=== PATIENT | female | born 1980 | race Caucasian/White ===

== ENCOUNTER 2021-02-01 11:51 | Outpatient (REF) | payer OTHER, SELFPAY ==
--- NOTE | ~2021-02-01 | XR_ITS ---
EXAMINATION: XR SHOULDER, LEFT CLINICAL INFORMATION: Pain COMPARISON: None TECHNIQUE: AP external rotation, Grashey, scapular Y, and axillary views of the left shoulder. FINDINGS: The bones and soft tissues are normal. No fracture. Glenohumeral and acromioclavicular alignment is anatomic with normal joint space. No abnormal soft tissue calcifications. XR/XR shoulder LT min 2V IMPRESSION: Normal left shoulder.
== END 2021-02-01 11:52 | disposition home or self-care (01) ==
LOC: HO.XRAY 11:51
PROVIDERS: PCP Registered Nurse; Visit Provider Registered Nurse
DX: M25.512 Pain in left shoulder (principal)
CPT/HCPCS: 73030

== ENCOUNTER 2021-03-31 15:00 | Outpatient (RCR) | payer OTHER, SELFPAY | END 2021-03-31 16:52 | disposition home or self-care (01) | LOC: HO.PTCHIC 15:00 | PROVIDERS: PCP Registered Nurse; Visit Provider Registered Nurse | DX: M25.512 Pain in left shoulder (principal) | CPT/HCPCS: 97110; 97140; 97161 ==

== ENCOUNTER → 2021-08-17 15:33 | Outpatient (BNVA) | payer OTHER, SELFPAY | PROVIDERS: PCP Registered Nurse; Referring Provider Registered Nurse; Visit Provider Surgery | DX: K62.5 Hemorrhage of anus and rectum (principal); K59.00 Constipation, unspecified | CPT/HCPCS: 99202 ==

== ENCOUNTER 2021-10-06 08:11 | Day surgery (SDC) | payer OTHER, SELFPAY ==
[2021-09-28 18:22] VITALS: BMI 29.6
--- NOTE | 2021-10-05 08:53 | HO.ANESPROP2 ---
Documented by User: Sandee Luna NP 10/05/21 08:53 HPI - Anesthesia Eval Consult details Narrative: 41yo F for Colonoscopy with Poss Polypectomy PMFSH Active Problems Active Problems: All Active Problems (Updated 08/17/21 @ 16:08 by Reginaldo Carrizales MD) Constipation (Acute) Rectal bleeding (Acute) Past Medical History Medical History Constipation Rectal bleeding Family History Family History Paternal Grandfather Lung cancer Maternal Grandfather Skin cancer Surgical History Surgical History H/O: hysterectomy Hx of tubal ligation Social History Social History Alcohol intake: never Patient Tobacco Use Status: Never used Tobacco Use of substances other than those prescribed or required for medical reasons: No Are you DNR?: No Advance Directives: No Advance Directives Information Provided: No Advance Directives on File: No Recently lost weight without trying: No Nutrition Risks: No Nutritional Risk Patient : No Meds Allergies Allergy/AdvReac Type Severity Reaction Status Date / Time No Known Allergies Allergy Verified 10/06/21 08:32 Exam Exam Date and Time: October 05, 2021 0853 Height,Weight and Vital Signs: Height 5 ft 2 in Weight 73.482 kg Assessment and Plan Assessment Anesthesia Assessment: Chart Reviewed Documented by User: Mark Arriaza MD 10/06/21 08:52 PMFSH Past Medical History Medical History Constipation Rectal bleeding Patient : No Family History Family History Paternal Grandfather Lung cancer Maternal Grandfather Skin cancer Family history of problems with anesthesia: No Surgical History Surgical History H/O: hysterectomy Hx of tubal ligation History of Problems with Anesthesia: No Social History Social History Alcohol intake: never Patient Tobacco Use Status: Never used Tobacco Use of substances other than those prescribed or required for medical reasons: No Are you DNR?: No Advance Directives: No Advance Directives Information Provided: No Advance Directives on File: No Recently lost weight without trying: No Nutrition Risks: No Nutritional Risk Patient : No Meds Allergies Allergy/AdvReac Type Severity Reaction Status Date / Time No Known Allergies Allergy Verified 10/06/21 08:32 Exam Airway Mallampati Class: II TM Dist: >3cm Neck ROM: Full Loose/Missing/Broken Teeth: No Heart: ok Lungs: ok Assessment and Plan Final Anesthetic Review Family History of Problems with Anesthesia: No History of Problems with Anesthesia: No ASA Class: I Final Preanesthetic Review: No Changes in Pt Med Stat, Meds/Allgs Chart Reviewed, Consent Obtained/Reviewed and Anes Risks/Benef Reviewed Patient Risk: Low Procedure Risk: Low Anesthetic Plan Anesthetic Plan: MAC: and Agree w/ Assess. and Plan Disposition: Standard PACU
[2021-10-06 08:32] VITALS: BP 129/97; PULSE 72; RESP 18; TEMP 36.2; O2SAT 99
[2021-10-06] MEDS: Sodium Phosphate,Mono-Dibasic 133 ML ENEMA PR (08:52)
[2021-10-06] MEDS: Lactated Ringers 1,000 ML 100 ML IVCONT (08:52)
--- NOTE | 2021-10-06 08:55 | P.HPSUR_ITS ---
Pre-Procedural Eval Section A Date of Service: 10/06/21 Section B Chief Complaint: hemorrhage of anus and rectum Details of Present Illness: Has had periodic passage of bright blood per rectum, chronic constipation, also has hemorrhoids Relevant Family History (Specify if Yes): No Relevant Social History: None Present Medications: see Short Stay Collaborative assessment Medical History: No relevant PMH History of Previous Operations: No relevant previous surgery Allergies: Allergies Allergy/AdvReac Type Severity Reaction Status Date / Time No Known Allergies Allergy Verified 10/06/21 08:32 Review of Systems Sugical H&P ROS: Negative: Constitution, Cardiovascular, Respiratory, Neurological, Psychiatric, Hem-Onc, Allergic/Immunologic, Genitourinary, Musculoskeletal, Integumentary, Endocrine and Eyes/Ears/Nose/Throat and Yes, S pecify: Gastrointestinal (Constipation) Exam Surgical H&P Exam: Normal: HEENT, Normal: Heart, Normal: Lungs, Normal: Extremities, Normal: Abdomen, Normal: Skin and Normal: Neurological Plan Diagnosis/Plan: Unchanged I have reviewed the history and physical and performed a pertinent physical examination on my patient. No changes have occurred unless specified.
--- NOTE | 2021-10-06 09:45 | W.PM.OPN ---
Operative Note Operative Note Date of Service: 10/06/21 Narrative: Preop diagnosis: Rectal bleeding Postop diagnosis: Internal and external hemorrhoids otherwise normal colonoscopy findings Procedure: Colonoscopy Surgeon: Reginaldo Carrizales MD The patient is a 41-year-old female who had been seeing amounts of bright blood per rectum periodically. Examination office reveal hemorrhoids which appeared to be was of her bleeding. However, she was very anxious about this and wanted to proceed with colonoscopy. I explained to her the technique of the procedure as well as the risks, benefits, and alternatives She was brought to the operating room and placed in left lateral decubitus position under monitored anesthesia care. A full digital rectal exam was done. She did have external hemorrhoids. The tip of the Olympus colonoscope was gently introduced through the anal orifice and advanced with insufflation all the way to the cecum. The cecum was intubated. The cecum was identified by visualization of the ileocecal valve as well as the appendiceal orifice. The cecal mucosa was unremarkable. The scope was gradually withdrawn with careful examination of the entire colonic mucosa being done with scope withdrawal. The patient had good bowel prep so it was unlikely that any lesion may have been missed. The rectum was reached and there were no lesions seen. There was internal hemorrhoids anal canal which appeared to be moderately-sized. There was note of external hemorrhoids as well on both the left and right side. The scope was then withdrawn completely with desufflation The patient tolerated procedure well. There were no complications. The patient was transferred to the recovery room with stable vital signs.
[2021-10-06 09:50] VITALS: BP 113/83; PULSE 77; RESP 18; TEMP 36.1; O2SAT 97
[2021-10-06 10:05] VITALS: BP 133/85; PULSE 78; RESP 18; TEMP 36.1; O2SAT 100
== END 2021-10-06 10:45 | disposition home or self-care (01) ==
PROVIDERS: Visit Provider Surgery
PROC: 0DBE8ZZ Excision of Large Intestine, Via Natural or Artificial Opening Endoscopic (ICD-10-PCS; CPT 45378; principal; 2021-10-06 09:00)
DX: K62.5 Hemorrhage of anus and rectum (principal); K64.8 Other hemorrhoids; K64.4 Residual hemorrhoidal skin tags; K59.00 Constipation, unspecified
CPT/HCPCS: 45378; J2250

== ENCOUNTER → 2021-10-18 11:54 | Outpatient (BNVA) | payer OTHER, SELFPAY | PROVIDERS: Visit Provider Surgery ==

== ENCOUNTER 2023-07-02 09:32 | Outpatient (REF) | payer OTHER, SELFPAY ==
--- NOTE | ~2023-07-02 | XR_ITS ---
EXAMINATION: XR HIP, RIGHT WITH AP PELVIS CLINICAL INFORMATION: Pain COMPARISON: None available. TECHNIQUE: AP and frog-leg lateral views of the right hip are submitted, together with an AP view of the pelvis. FINDINGS: No fracture or dislocation. Alignment is anatomic. The bilateral acetabular joint spaces are well-maintained. The femoral heads are smooth. The sacroiliac joints are symmetric and well-maintained. The pubic symphysis is intact. The soft tissue tissues are unremarkable. XR/XR hip RT w PEL1V IMPRESSION: Normal right hip and AP pelvis radiographs.
--- NOTE | ~2023-07-02 | XR_ITS ---
EXAMINATION: XR SHOULDER, LEFT CLINICAL INFORMATION: Pain. COMPARISON: Radiographs dated 02/01/2021. TECHNIQUE: AP external rotation, Grashey, scapular Y, and axillary views of the left shoulder. FINDINGS: The bones and soft tissues are normal. No fracture. Glenohumeral and acromioclavicular alignment is anatomic with normal joint space. No abnormal soft tissue calcifications. XR/XR shoulder LT min 2V IMPRESSION: Normal left shoulder.
[2023-07-02 12:32] LABS: Erythrocyte Sedimentation Rate 16 MM/HR (0-20)
[2023-07-03 04:06] LABS: HBS Num1 0.01 mIU/mL (0-7.99); HBc Num1 0.13 S/CO (0.00-0.79); HBsAGNum1 0.49 S/CO (0.00-0.99); Hepatitis B Core Antibody Nonreactive (Nonreactive); Hepatitis B Surface Antigen Negative (Negative); ~HepC Num1 0.19 S/CO (0.00-0.79); ~Hepatitis A Antibody IgM Nonreactive (Nonreactive); ~Hepatitis B Surface Antibody NONREACTIVE (Nonreactive); ~Hepatitis C Antibody Nonreactive (Nonreactive)
[2023-07-03 14:34] LABS: Cyclic Citrullinated Peptide <16 UNITS
== END 2023-07-02 09:33 | disposition home or self-care (01) ==
LOC: HO.LAB 09:32
PROVIDERS: PCP General Practice; Referring Provider General Practice; Visit Provider Internal Medicine Rheumatology
DX: M25.512 Pain in left shoulder (principal); R76.8 Other specified abnormal immunological findings in serum; M25.551 Pain in right hip
CPT/HCPCS: 36415; 73030; 73502; 85652; 86140; 86200; 86704; 86706; 86709; 86803; 87340

== ENCOUNTER 2023-07-02 09:32 | Outpatient (AMB) | payer OTHER, SELFPAY ==
--- NOTE | 2023-07-02 09:36 | A.OFFVIS_ITS ---
Intake Vital Signs 07/02/23 09:37 Height 5 ft 2 in Weight 181 lb 14.102 oz BMI 33.3 BP 114/88 Blood Pressure Location Lt brachial Position Sitting Pulse 88 Pulse Source Pulse Oximeter Temp 97 F Temp Source Skin Pulse Oximetry (%) 98 Oxygen Delivery Method Room Air Intake Visit Reasons: + RF? 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 Areas of pain include the left shoulder, right shoulder, lower back and to less extent than the hands and knees. She complains of a tremor in the left hand. This is a non-intention tremor. It has not been evaluated yet. The left shoulder has been hurting for a couple of years. They did some workup on that including x-ray that was normal and then they did an MRI of the neck. This resulted in the finding of a cyst in the neck that was operated on. The MRI of the neck did show multiple levels of degenerative disc disease. [facility] Medical History (Updated 07/02/23 @ 10:42 by Chris Terry MD) Constipation Rectal bleeding Surgical History (Updated 07/02/23 @ 09:43 by SUKHJINDER Wagoner) H/O total cystectomy H/O: hysterectomy History of colonoscopy Hx of tubal ligation Family History (Updated 07/02/23 @ 09:44 by SUKHJINDER Wagoner) Paternal Grandfather Lung cancer Maternal Grandfather Skin cancer Arthritis Paternal Aunt Lupus Social History (Updated 07/02/23 @ 09:45 by SUKHJINDER Wagoner) Household Members: Spouse and Children Alcohol intake: former Patient Tobacco Use Status: Former Tobacco user Current occupational status: employed Current occupation: Teacher, behavior therapist Review of Systems Const Details: Some fatigue. Negative for appetite change, weight change, fever, chills, malaise Eyes Details: Negative for vision change, dry eyes,headaches and dizziness ENT Details: Negative for hearing change, tinnitus, oral ulcer, nose bleeds and oral dryness. Card Details: Negative chest pain, edema and syncope Resp Details: Negative for SOB, cough and wheezing GI Details: Occasional constipation. Negative indigestion/heartburn, nausea, abdominal pain, bowel changes, diarrhea, and bloody stool. Details: Negative for dysuria, hematuria, nocturia, decreased force/flow and genital discharge Skin/Breast Details: Negative for itching, rash, hives, Raynaud's symptoms, sun sensitivity, and skin cancer Neuro Details: Left hand has movements when she is not intentionally using it. There is occasional tingling in the left hand as well. This seems to be accompanied by shoulder pain. Negative for epilepsy, palsy, stroke, changes in speech, and weakness Psych Details: Negative for anxiety, depression and stress Endo Details: Negative for polyuria and polydypsia Heriberto/Lymph Details: Negative for excessive bruising or bleeding. Physical Exam Vital Signs: Last Vital Signs Temp 97 F 07/02/23 09:37 Pulse 88 07/02/23 09:37 BP 114/88 07/02/23 09:37 Pulse Ox 98 07/02/23 09:37 Oxygen Delivery Method Room Air 07/02/23 09:37 BMI result Body Mass Index 33.3 APPEARANCE: Patient in no acute distress EYES no redness, pupils equal and reactive to light, eyelids normal EARS: External ear normal, canal clear and tympanic membrane normal. NOSE/SINUS: Airflow through both nares, no nasal discharge, no bleeding THROAT: Oral mucosa moist, no ulcerations NECK: There is a well-healed scar anteriorly. No thyromegaly or masses, no adenopathy, trachea midline. HEART: Regulrar rhythm, S1-S2 heard, no murmurs, rubs or gallops. LUNG: Clear to percussion and auscultation ABD: Normal bowel sounds, no organomegaly, masses or tenderness. EXTREMITIES: No edema, no calf tenderness, normal peripheral pulses. NEURO: Oriented and alert x3. No focal weakness. Reflexes symmetric. Gait normal. I do not really detect any movements in the left hand. SKIN: No inflammatory or neoplastic lesions. Normal color and turgor JOINT EXAM:.?? Cervical Spine:.? Mild pain with extremes of normal range of motion; no tenderness. Thoracic Spine:.? No scoliosis.? No tenderness on palpation. Lumbar Spine:.? Alignment normal.? Full range of motion without pain, no tenderness. Chest Wall:.? No tenderness, swelling, increased warmth or erythema. Hands:. Left: Slight tenderness at the 1st MCP but no other areas of tenderness or swelling. Normal range of motion. Right:? Normal pain-free range of motion without tenderness, swelling, increased warmth or erythema. Able to make a full fist and has a good bellman driver strength. Wrists:.? Right: Slight pain with extremes of normal range of motion with some slight tenderness but no swelling. Left: Normal pain-free range of motion without tenderness, swelling, increased warmth or erythema. Elbows:. Right: Slight medial epicondylar tenderness. Elsewhere there is no tenderness or swelling with pain-free range of motion. Left: Normal pain-free range of motion without tenderness, swelling, increased warmth or erythema. Shoulders: Right: Slight pain with extremes of normal range of motion. Minima anterior tenderness without weakness or swelling. No adenopathy. Left: Mild pain wit abduction at 135 degrees or with extremes of rotation. Mild anterior tenderness without abductor weakness, swelling or adenopathy. Hips:.? Right: Slight lateral pain with extremes of rotation. No groin pain with motion. Left: Full range of motion without pain. Hip bursa:.? Moderate right trochanteric tenderness. Knees:.?? Normal pain-free range of motion without tenderness, swelling, increased warmth or erythema.? There is no effusion or crepitation Ankles:.? Normal pain-free range of motion without tenderness, swelling, increased warmth or erythema. Feet:.? Normal pain-free range of motion without tenderness, swelling, increased warmth or erythema. Tender points:.? Slighttenderness to digital palpation at the trapezius, lateral epicondyle, greater trochanter the area bilaterally. ? Results Reviewed Results Reviewed: September 2022: Rheumatoid factor 78. TSH normal, hemoglobin normal, VENUS negative Assessment & Plan Assessment & Plan (1) Hip pain, right: Code(s): M25.551 - Pain in right hip (2) Rheumatoid factor positive: Code(s): R76.8 - Other specified abnormal immunological findings in serum (3) Shoulder pain, left: Code(s): M25.512 - Pain in left shoulder Plan She has a moderately positive rheumatoid factor but no obvious signs of an active inflammatory arthritis. Of course over time symptoms could evolve further. The right hip pain seems to be consistent with some trochanteric bursitis. The left shoulder has painful range of motion consistent with rotator cuff pathology. I am going to recheck the left shoulder film. If that does not show significant pathology the next step in workup would be an MRI of the shoulder. She has already tried physical therapy for the shoulder and received a corticosteroid injection without improvement. To workup further the rheumatoid factor we will check some hepatitis profile. We will get back to her with the results of her workup. Orders: Orders Cyclic Citrullinated Peptide Today R76.8 - Other specified abnormal immunological findings in serum C Reactive Protein Today R76.8 - Other specified abnormal immunological findings in serum Erythrocyte Sedimentation Rate Today R76.8 - Other specified abnormal immunological findings in serum Hepatitis A,B,C Profile Today R76.8 - Other specified abnormal immunological findings in serum XR shoulder LT min 2V Today M25.512 - Pain in left shoulder Coding Level of Care Code New Pt Level 3 (51480) Diagnoses Hip pain, right M25.551 Rheumatoid factor positive R76.8 Shoulder pain, left M25.512
[2023-07-02 09:37] VITALS: BP 114/88; PULSE 88; TEMP 36.1; O2SAT 98; BMI 33.3
== END 2023-07-02 10:47 | disposition home or self-care (01) ==
PROVIDERS: PCP General Practice; Referring Provider General Practice; Visit Provider Internal Medicine Rheumatology
DX: M25.551 Pain in right hip (principal); R76.8 Other specified abnormal immunological findings in serum; M25.512 Pain in left shoulder; M25.511 Pain in right shoulder
CPT/HCPCS: 99203

== ENCOUNTER 2023-07-26 16:06 | Outpatient (REF) | payer OTHER, SELFPAY ==
[2023-07-26 17:39] LABS: Appearance Urine Cloudy; Color Urine Yellow; Glucose Urine UA Negative (Negative); Leukocyte Esterase Urine Negative (Negative); Nitrite Urine Negative (Negative); Specific Gravity - Urine >= 1.030 (1.005-1.025); Urine Blood Negative (Negative); Urine Ketones Negative (Negative); Urine Protein Negative (Neg-Trace)
[2023-07-26 18:01] LABS: Bacteria Urine 3+ (None Seen); Hyaline Casts Urine 0-2 /LPF (0-2); RBC Urine 0-2 /HPF (0-2); WBC Urine 0-5 /HPF (0-5)
== END 2023-07-26 16:07 | disposition home or self-care (01) ==
LOC: HO.HHCL 16:06
PROVIDERS: Visit Provider General Practice
DX: R30.0 Dysuria (principal)
CPT/HCPCS: 81001

== ENCOUNTER 2023-07-29 13:32 | Outpatient (REF) | payer OTHER, SELFPAY ==
--- NOTE | ~2023-07-29 | MR_ITS ---
EXAMINATION: MR SHOULDER WITHOUT CONTRAST, LEFT CLINICAL INFORMATION: Pain in the left shoulder. COMPARISON: X-rays of the left elbow June 2023. TECHNIQUE: MRI of the left shoulder was performed without contrast on a high field MRI scanner. FINDINGS: Rotator Cuff: Infraspinatus: There is a minimal linear focus of intermediate increased signal at the insertion of the infraspinatus tendon compatible with focal tendinosis or minimal interstitial partial tearing. No measurable defect or tendon retraction. Muscle normal. Remaining rotator cuff muscles and tendons normal. Biceps: Normal. Coracoacromial Arch: The acromioclavicular joint is normal. The undersurface of the acromion is flat without subacromial spur. Bursa: Trace fluid/edema within the bursa compatible with normal variation or minimal bursitis. Labrum/Capsule: Normal. Glenohumeral Joint: Normal. MR/MR shoulder LT wo con IMPRESSION: 1. Minimal abnormality of the infraspinatus tendon compatible with focal tendinosis or minimal interstitial partial tearing. 2. Trace fluid within the subacromial subdeltoid bursa compatible with normal variation or minimal bursitis.
== END 2023-07-29 13:33 | disposition home or self-care (01) ==
LOC: HO.MRI 13:32
PROVIDERS: PCP General Practice; Visit Provider Internal Medicine Rheumatology
DX: M25.512 Pain in left shoulder (principal); M75.82 Other shoulder lesions, left shoulder
CPT/HCPCS: 73221

== ENCOUNTER 2023-08-29 14:58 | Outpatient (AMB) | payer OTHER, SELFPAY ==
--- NOTE | 2023-08-29 15:12 | A.OFFVIS_ITS ---
Intake Vital Signs 08/29/23 15:17 Height 5 ft 2 in Weight 181 lb BMI 33.1 Intake Visit Reasons: New Pt - right hip pain Intake Note: Edwige 43 yr old female presents today for a new patient visit with complaints of progressively worsening neck pain which radiates down her left arm as well as intermittent left shoulder pain and right hip pain. She describes her neck pain as sharp and severe in nature. Her neck pain has gotten worse over the last 3 years in spite of continued non operative treatments. She has done physical therapy for 12 weeks over the last 6 months which aggravated her pain. The patient has tried Tylenol and anti-inflammatory medicines which gave her minimal relief. She describes her left shoulder pain and right hip pains as aching in nature. She has had cortisone injections in the past which gave her only temporary relief. Patient states that at times her left arm will go ?completely numb?. Allergies No Known Allergies Allergy (Verified 08/29/23 15:15) Medication List - Last Reconciled 08/29/23 by Chris Camacho MD lisinopril 10 mg PO DAILY methylprednisolone (Medrol (Vin)) PO PER [facility] Medical History (Updated 08/29/23 @ 15:38 by Chris Camacho MD) Constipation Rectal bleeding Surgical History (Updated 07/02/23 @ 09:43 by SUKHJINDER Wagoner) H/O total cystectomy History of colonoscopy H/O: hysterectomy Hx of tubal ligation Family History (Updated 07/02/23 @ 09:44 by SUKHJINDER Wagoner) Paternal Grandfather Lung cancer Maternal Grandfather Skin cancer Arthritis Paternal Aunt Lupus Social History (Updated 08/29/23 @ 15:16 by Tamara Cartwright [facility]) Household Members: Spouse and Children Alcohol intake: former Patient Tobacco Use Status: Former Tobacco user Current occupational status: employed Current occupation: Teacher, behavior therapist/ rt hand Physical Exam Vital Signs: BMI result Body Mass Index 33.1 Const Other: Well-nourished well-developed very friendly female awake alert and oriented x3 in no acute distress Neck Other: Cervical spine examination shows pain with range of motion, left-sided paraspinal muscle tenderness, positive Spurling's test Extrem Other: Bilateral upper extremity examination shows good capillary refill, no skin lesions noted, normal sensation light touch Left shoulder examination shows almost full range of motion when compared to her right shoulder, 5/5 strength with supraspinatus testing, positive impingement signs, tenderness over her acromioclavicular joint Right hip examination shows slightly decreased range of motion when compared to her left hip, minimal discomfort with range of motion, tenderness over her bursa, no overlying skin lesions Results Reviewed Results Reviewed: X-rays of the patient's right hip show minimal joint space narrowing, no acute bony abnormalities MRI of the patient's left shoulder shows moderate to severe acromioclavicular joint narrowing, a type 2 acromion, no acute bony abnormalities Assessment & Plan Assessment & Plan (1) Neck pain: Code(s): M54.2 - Cervicalgia Plan: Ms. Fields presents with progressively worsening neck pain radiates into her left arm possibly due to cervical stenosis or a disc herniation. Thus, I will send her for an MRI of her cervical spine for further evaluation. She will contact me prior to the MRI should her symptoms worsen in any way. Patient also has left shoulder pain due to impingement syndrome and right hip pain due to greater trochanteric bursitis. We will hold off on a cortisone injection as per the patient's request. I did give her a prescription for a Medrol Dosepak to help with her symptoms in the meantime. Feel free to call me at any time should questions regarding her orthopedic management arise. Thank you very much for asking me to see this very friendly patient. I spent 24 minutes in reviewing the patient's records and imaging studies, seeing the patient and documenting in the medical record. Orders: Orders XR hip RT min 2V 08/29/23 M25.551 - Pain in right hip MR cervical spine wo con 08/29/23 M54.2 - Cervicalgia Medications: New methylprednisolone (Medrol (Vin)) PO PER PKG DIR 21 ea 0RF Coding Level of Care Code New Pt Level 2 (32308) Diagnoses Neck pain M54.2
[2023-08-29 15:17] VITALS: BMI 33.1
== END 2023-08-29 15:51 | disposition home or self-care (01) ==
PROVIDERS: PCP General Practice; Visit Provider Orthopaedic Surgery
DX: M54.2 Cervicalgia (principal)
CPT/HCPCS: 99202

== ENCOUNTER 2023-08-29 16:27 | Outpatient (REF) | payer OTHER, SELFPAY ==
--- NOTE | ~2023-08-29 | XR_ITS ---
EXAMINATION: XR HIP, RIGHT CLINICAL INFORMATION: Pain. COMPARISON: Radiographs dated 07/02/2023. TECHNIQUE: An AP view of the pelvis and a frog lateral view of the right hip were submitted. FINDINGS: Bony alignment and mineralization are normal. The acetabular joint spaces are well-maintained. There is slight irregularity of the acetabular roofs. The femoral heads are smooth. No fracture or dislocation is seen. The sacroiliac joints are symmetric and well-maintained. The pubic symphysis is intact. No foreign body is noted. XR/XR hip RT min 2V IMPRESSION: There are minimal osteoarthritic changes of the hips. No acute fracture or dislocation is seen.
== END 2023-08-29 16:28 | disposition home or self-care (01) ==
LOC: HO.HOSX 16:27
PROVIDERS: Visit Provider Orthopaedic Surgery
DX: M25.551 Pain in right hip (principal); M54.2 Cervicalgia; Z79.899 Other long term (current) drug therapy
CPT/HCPCS: 73502

== ENCOUNTER 2023-10-31 15:09 | Outpatient (AMB) | payer SELFPAY ==
--- NOTE | 2023-10-31 15:13 | MHC.OFFVIS ---
Intake Vital Signs 10/31/23 15:14 Height 5 ft 2 in Weight 181 lb BMI 33.1 Intake Visit Reasons: OV - Left Shoulder Pain Intake Note: Amna is a 43 year old female who presents today for a follow up of her left shoulder. She states that she got minimal relief from the Medrol Dosepak. She did have a cortisone injection given into her left shoulder in the past which gave her only mild relief. She denies any weakness. Allergies No Known Allergies Allergy (Verified 08/29/23 15:15) Medication List - Last Reconciled 11/01/23 by Chris Camacho MD lisinopril 10 mg PO DAILY methylprednisolone (Medrol (Vin)) PO PER PK DIR [facility] Medical History Constipation Rectal bleeding Surgical History H/O total cystectomy History of colonoscopy H/O: hysterectomy Hx of tubal ligation Family History Paternal Grandfather Lung cancer Maternal Grandfather Skin cancer Arthritis Paternal Aunt Lupus Social History Household Members: Spouse and Children Alcohol intake: former Patient Tobacco Use Status: Former Tobacco user Current occupational status: employed Current occupation: Teacher, behavior therapist/ rt hand Physical Exam Vital Signs: BMI result Body Mass Index 33.1 Const Other: Well-nourished well-developed very friendly female awake alert and oriented x3 in no acute distress Extrem Other: Insert bilateral upper Left shoulder examination shows almost full range of motion when compared to her right shoulder, 5/5 strength with supraspinatus testing, positive impingement signs, tenderness over her acromioclavicular joint Office Procedures Joint Injection/Drain Joint Injection/Drain Primary Site: left shoulder Prep: site was prepped using aseptic technique Injected: 40 mg of, DepoMedrol and 1% plain lidocaine Procedure: The patient tolerated the procedure well Coding 32980 - Large joint Procedure code (CPT) selection complete Results Reviewed Results Reviewed: MRI of the patient's left shoulder shows moderate to severe acromioclavicular joint narrowing, a type 2 acromion, signal change within the supraspinatus tendon most likely due to rotator cuff tendinosis Assessment & Plan Assessment & Plan (1) Impingement syndrome of left shoulder: Code(s): M75.42 - Impingement syndrome of left shoulder Plan Ms. Fields presents with left shoulder pain due to impingement syndrome and rotator cuff tendinosis. I had a lengthy discussion with the patient regarding the treatment options. She wishes to hold off on surgery for as long as possible. I agree with this plan. The risks and benefits of a left shoulder cortisone injection were discussed at length with the patient. The patient wished to proceed. She tolerated the injection well. She will continue with her home stretching program. She will follow up with me on an as-needed basis should her symptoms not plateau at an unacceptable level over the next few months. Feel free to call me at any time should questions regarding her orthopedic management arise. I spent 22 minutes in reviewing the patient's records and imaging studies, seeing the patient and documenting in the medical record. Orders: Orders AMB Joint Injection/Aspiration 10/31/23 M75.42 - Impingement syndrome of left shoulder Coding Level of Care Code Est Pt Level 2 (16867) Diagnoses Impingement syndrome of left shoulder M75.42 CPT Codes Coding - 37500 Large joint: 56655 - Large joint ([id number])
[2023-10-31 15:14] VITALS: BMI 33.1
== END 2023-10-31 15:35 | disposition home or self-care (01) ==
PROVIDERS: PCP General Practice; Visit Provider Orthopaedic Surgery
DX: M75.42 Impingement syndrome of left shoulder (principal)
CPT/HCPCS: 20610; 99213

== ENCOUNTER → 2023-10-31 15:09 | Outpatient (BNVA) | payer SELFPAY | PROVIDERS: PCP General Practice; Visit Provider Orthopaedic Surgery | DX: M75.42 Impingement syndrome of left shoulder (principal) | CPT/HCPCS: 20610; J1020 ==

== ENCOUNTER → 2024-09-10 14:09 | Outpatient (REF) | payer OTHER, SELFPAY | LOC: HO.SL 14:09 | PROVIDERS: PCP General Practice; Visit Provider General Practice | DX: R40.0 Somnolence (principal); R06.83 Snoring; R42 Dizziness and giddiness | CPT/HCPCS: 95806 ==

== ENCOUNTER → 2024-09-10 19:00 | Outpatient (BNV) | payer OTHER, SELFPAY | PROVIDERS: PCP General Practice; Visit Provider Internal Medicine | DX: R06.83 Snoring (principal); R40.0 Somnolence | CPT/HCPCS: 95806 ==

== ENCOUNTER 2024-09-11 15:30 | Outpatient (REF) | payer OTHER, SELFPAY ==
--- NOTE | ~2024-09-11 | CT_ITS ---
EXAMINATION: CT HEAD WITHOUT CONTRAST CLINICAL INFORMATION: Vertigo. COMPARISON: None available. TECHNIQUE: Contiguous axial imaging was performed from the skull base to vertex without intravenous administration of contrast. This CT examination was performed using dose optimization techniques as appropriate, variously including the following: *Automated exposure control. *Adjustment of mA and/or kV according to patient size (this includes techniques or standardized protocols for targeted exams where dose is matched to indication/reason for exam; i.e. extremities or head). *Use of iterative reconstruction technique. DLP: 800 mGy-cm FINDINGS: There is no evidence of acute intracranial hemorrhage or edematous territorial infarction. Pink-white matter differentiation is preserved. There is no abnormal attenuation within the brain parenchyma. The ventricles are normal in morphology and size. No evidence for obstructive hydrocephalus. No abnormal mass effect or midline shift. No extra-axial fluid collections. No acute soft tissue or osseous abnormalities. Mild mucosal thickening of the paranasal sinuses. The mastoid air cells and middle ear cavities are clear. Mild degenerative arthropathy of the left temporomandibular joint. CT/CT head/brain wo IV con IMPRESSION: No evidence of acute intracranial hemorrhage or edematous territorial infarction. Electronically signed by: David Nazario DO 10/28/2024 05:35 AM EST
== END 2024-09-11 15:31 | disposition home or self-care (01) ==
LOC: HO.CT 15:30
PROVIDERS: PCP General Practice; Visit Provider General Practice
DX: R42 Dizziness and giddiness (principal)
CPT/HCPCS: 70450

== ENCOUNTER 2025-03-09 14:15 | Outpatient (REF) | payer OTHER, SELFPAY ==
--- OUTSIDE RECORDS SUMMARY | 2025-03-09 17:07 | XMS_ITS | Encounter Summary ---
Author Organization [employer] Address [address] [place] [address] Care Team Providers Care Supervisor Insecticide Name Role Phone Anne Clemente MD Primary Care Provider [phone] Reason for Visit * Reason Onset Date Comments Med Refill 11/22/2023 Encounter Details Date Type Department Care Team ([facility] st Contact Info) Description 11/22/[address] [facility] MEDICINE [address] [place] [address] Anne Clemente MD [address], [place] [id number] Med Refill Social History Tobacco Use Types Packs/Day Years Used Date Smoking Tobacco: Never Smokeless Tobacco: Never Alcohol Use Standard Drinks/Week Comments Never 0 (1 standard drink = 0.6 oz pur e alcohol) Housing Stability Answer Date Recorded What is your housing situation today? I have ceciliakamran zapata 09/16/[address] you li ve. Do you have problems with any of the following? None of the above 09/16/2023 Food Insecurity Answer Date Recorded Within the past 12 months, y ou worried that your food would run out before you got money to buy more: Never True 09/16/2023 Within the past 12 months,th e food you bought just didn't last and you didn't have enough money to get more: Never True Transportation Answer Date Recorded In the past 12 months, has l ack of transportation kept you from medical appts, meetings, work or from getting things needed for daily living? Yes, it has kept me from medical appointments or getting medications. 08/25/2023 Utilities Answer Date Recorded In the past 12 months, has t he electric, gas, oil or water company threatened to shut off services in your home? No 09/16/2023 Depression Answer Date Recorded Patient Health Questionnaire-2 Score 2 06/07/2023 Comments Unknown Sex and Gender Information Value Date Recorded Sex Assigned at Female 09/17/2022 10:37 AM EDT Legal Sex Female 10:37 AM EDT Gender Identity Female 09/17/2022 10:37 AM EDT Sexual Orientation Choose not to disclose 2021 10:37 AM EDT documented as of this encounter Miscellaneous Notes * Telephone Encounter - Amna Gautam LPN - 11/22/2023 9:32 AM EST Medication was sent to [facility] #[id number] on 07/26/23 #90 with 3 refills. * Telephone Encounter - Kev Galvan - 11/22/2023 9:29 AM EST TC from pt requesting medication refill. Medications needing refill : lisinopril 10 MG tablet To be sent to: [facility]/pharmacy #[id number] - [place] [place] [facility] documented in this encounter Plan of Treatment Not on file documented as of this encounter Visit Diagnoses Not on filedocumented in this encounter Care Teams Supervisor Insecticide Relationship Specialty Start Date End Date Anne Clemente MD [address] [place] [address] PCP - General Family Medicine 07/10/21 documented as of this encounter
--- OUTSIDE RECORDS SUMMARY | 2025-03-09 17:07 | XMS_ITS | Clinical Summary ---
Author Organization [employer] Address [address] [facility] [address] [place] [address] Care Team Providers Care Supervisor Steffen House Name Role Phone Anne Clemente MD Primary Care Provider [phone] Allergies No known active allergies Medications * This document contains information received from the source organization and may not represent a complete record from that organization. fluticasone (Flonase) 50 MCG/ACT nasal spray inhale 2 spray by intranasal route every day in each nostril 12/08/19 22 Active Diclofenac Sodium 1 % gel USE 2 GRAMS TOPICALLY 4 TIMES A DAY FOR 10 DAYS 12/03/19 24 Active traZODone (Desyrel) 50 MG tablet Take 1 tablet (50 mg) by mouth if needed at bedtime for sleep. 90 tablet 3 06/29/20 24 025 Active lisinopril 10 MG tabletIndicatio ns:Essential hypertension Take 1 tablet (10 mg) by mouth in the morning. 90 tablet 3 03/01/20 25 Active Magnesium 400 MG capsuleIndicati ons:Chronic tension-type headache, not intractable Take 400 mg by mouth Once per day. 90 capsule 3 03/02/20 25 Active Riboflavin 400 MG capsuleIndicati ons:Chronic tension-type headache, not intractable Take 400 mg combined by mouth Once per day. 90 capsule 3 03/02/20 25 Active aspirin-acetami nophen-caffeine (Excedrin Migraine) 250-250-65 MG tabletIndicatio ns:Chronic tension-type headache, not intractable Take 1 tablet by mouth every 6 (six) hours if needed for headaches for up to 10 days. 30 tablet 03/02/20 25 025 Active fexofenadine (Malika) 180 MG tabletIndicatio ns:Fluid level behind tympanic membrane of both ears Take 1 tablet (180 mg) by mouth if needed each day (Allergies). 90 tablet 3 03/02/20 25 026 Active cetirizine (ZyrTEC) 10 MG tablet Take 1 tablet (10 mg) by mouth in the morning. 90 tablet 2 06/07/20 23 025 Discontinued(T herapy completed) metroNIDAZOLE (Flagyl) 500 MG tablet Take 500 mg by mouth every 12 (twelve) hours. 06/28/20 23 025 Discontinued(T herapy completed) nitrofurantoin, macrocrystal-mo nohydrate, (Macrobid) 100 MG capsule Take 100 mg by mouth 2 times daily. 06/22/20 025 Discontinued(T herapy completed) phenazopyridine (Pyridium) 100 MG tablet TAKE 1 TABLET (ORAL) 3 TIMES PER DAY FOR 6 DOSES 06/22/20 025 Discontinued(T herapy completed) montelukast (Singulair) 10 MG tablet Take 1 tablet (10 mg) by mouth at bedtime. 90 tablet 3 07/26/20 025 Discontinued(T herapy completed) fluconazole (Diflucan) 150 MG tablet TAKE 1 TABLET BY MOUTH EVERY DAY FOR 1 DAY 02/13/20 24 025 Discontinued(T herapy completed) meloxicam (Mobic) 7.5 MG tablet TAKE 1 TABLET BY MOUTH TWICE A DAY FOR 14 DAYS 12/03/19 24 025 Discontinued(I neffective) methylPREDNISol one (Medrol Dospak) 4 MG tablets TAKE 6 TABLETS ON DAY 1 DIRECTED ON PACKAGE AND DECREASE BY 1 TAB EACH DAY FOR A TOTAL OF 6 DAYS 08/29/20 23 025 Discontinued(T herapy completed) metroNIDAZOLE (Metrogel) 0.75 % vaginal gel TAKE 1 APPLICATOR (VAGINAL) EVERY 12 HOURS FOR 7 DAYS 02/18/20 24 025 Discontinued(T herapy completed) lisinopril 10 MG tablet TAKE 1 TABLET BY MOUTH EVERY DAY IN THE MORNING 90 tablet 3 09/01/20 24 025 Discontinued(R eorder (will not trigger notification to Pharmacy)) Active Problems Problem Noted Date Diagnosed Date Chronic tension-type headache, not intractable 0 03/02/2025 Anxiety disorder, unspecified 08/04/2024 Vertigo 07/26/2024 Overview (07/26/2024): Since Summer 2023 Initially presented as more dizziness, now a combination of vertigo Assessment & Plan (07/26/2024 10:41 AM EDT): Will obtain head CT Discontinue use of antihistamine/antibiotics Daytime somnolence 07/26/2024 Overview (07/26/2024): With snoring Neck circumference 38cm Assessment & Plan (07/26/2024 10:42 AM EDT): Will order sleep study Depression, unspecified 07/03/2024 Assessment & Plan (07/10/2024 9:39 AM EDT): During [facility] Consult Edwige presenting with depressed mood, sense of isolation/loneliness , isolating, inappropriate/excessive guilt , difficulty concentrating; for a period of 6-12 mo, for most or all symptoms in the context of marriage and relationship issues. Edwige has been struggling in her relationship. Reports poor communication with her which is causing a lot of stress and depressed mood. Her sense of zeke and spirituality is strong and identified as main strength. Edwige prefers to isolate herself and has difficulty sharing her emotions with others. clinician reviewed and assessed for risk, current stressors and protective factors. Explored coping mechanisms that can be useful for patient and can incorporate into daily routine. Pt agreed with referral for OP therapy and would like to follow-up with clinician during next medical appointment. Problems in relationship with spouse or partner 07/01/2024 Assessment & Plan (07/10/2024 9:39 AM EDT): During IBH Consult Edwige presenting with depressed mood, sense of isolation/loneliness , isolating, inappropriate/excessive guilt , difficulty concentrating; for a period of 6-12 mo, for most or all symptoms in the context of marriage and relationship issues. Edwige has been struggling in her relationship. Reports poor communication with her which is causing a lot of stress and depressed mood. Her sense of zeke and spirituality is strong and identified as main strength. Edwige prefers to isolate herself and has difficulty sharing her emotions with others. clinician reviewed and assessed for risk, current stressors and protective factors. Explored coping mechanisms that can be useful for patient and can incorporate into daily routine. Pt agreed with referral for OP therapy and would like to follow-up with clinician during next medical appointment. Adult general medical exam 06/29/2024 Chronic left shoulder pain 02/18/2023 Assessment & Plan (07/01/2024 9:40 AM EDT): MRI completed Ortho offered surgical intervention and she declines Rheum though unlikely/unclear if MSK disease or autoimmune disease Assessment & Plan (07/30/2023 9:38 AM EDT): MRI pending Then followup with ortho Rheum though unlikely/unclear if MSK disease or autoimmune disease Assessment & Plan (02/18/2023 6:31 AM EDT): S/p assessment with ortho, some PT Will order MRI Have rheum see her to rule out RA Rheumatoid factor positive 02/18/2023 Assessment & Plan (07/30/2023 9:40 AM EDT): [place], [facility] [place] Moderately positive RF Assessment & Plan (06/07/2023 1:40 PM EDT): Rheum appointment scheduled for Jun 2023 Assessment & Plan (02/18/2023 6:31 AM EDT): Rheum appointment scheduled for April 25 2023 Essential hypertension 02/18/2023 Assessment & Plan (07/01/2024 9:40 AM EDT): Continue lisinopril to 10mg Monitor BP daily If chronic cough has improved Assessment & Plan (07/30/2023 9:37 AM EDT): Increase lisinopril to 10mg Monitor BP daily If chronic cough persists despite zyrtec/singulair may consider switching to CCB from ACEi Assessment & Plan (06/07/2023 1:39 PM EDT): Increase Lisinopril to 10mg daily Continue to monitor BP at home Assessment & Plan (02/18/2023 6:31 AM EDT): Not taking Lisinopril 5mg Refills given, 90 tabs Goal <140/90 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 Assessment & Plan (07/01/2024 9:41 AM EDT): With blackhead formation in incisional scar, will schedule for excision Assessment & Plan (07/30/2023 9:39 AM EDT): Resolved on CT scan, no reoccurance Assessment & Plan (06/07/2023 1:40 PM EDT): Trial allergy meds/antihistamine to see if that is causing her nocturnal symptoms If not, proceed to CT Encounters Date Type Department Care Team Description 03/01/2025 3:15 PM EDT Office Visit [facility] [address] [place] [phone] Anne Clemente MD Chronic tension-type headache, not intractable (Primary Dx); Dietary counseling; Exercise counseling; Class 1 obesity with serious comorbidity and body mass index (BMI) of 33.0 to 33.9 in adult, unspecified obesity type; Problems in relationship with spouse or partner; Persistent depressive disorder; Anxiety disorder, unspecified type; Essential hypertension; Vertigo; Fluid level behind tympanic membrane of both ears; Encounter for screening mammogram for malignant neoplasm of breast; Jacque 03/01/2025 Travel 02/24/2025 Telephone [facility] [address] [place] [phone] Anne Clemente MD Recall 12/22/2024 Orders Only [facility] [address] [place] [address] [phone] Anne Clemente MD Vertigo (Primary Dx) 12/17/2024 Telephone [facility] [address] [place] [phone] Sophie Schneider, DARSHANA Call Back Request from Last 3 Months Immunizations Name Administration Dates Next Due Pfizer Covid-19 Vaccine 12+ 07/11/2022,,02/07/2021 Pfizer Covid-19 Vaccine 12+ cindy-sucrose (Pink Cap) 07/11/2022 Social History Tobacco Use Types Packs/Day Years Used Date Smoking Tobacco: Never Smokeless Tobacco: Never Tobacco Cessation:Counseling Given: Not Answered Alcohol Use Standard Drinks/Week Comments Never 0 (1 standard drink = 0.6 oz pur e alcohol) Depression Answer Date Recorded Patient Health Questionnaire-9 Score 11 08/04/2024 Patient Health Questionnaire-9 Score 11 08/04/2024 Last PHQ-9: Questionnaire Data Not on file 0 08/04/2024 Housing Stability Answer Date Recorded What is your housing situation today? I have cecilia jodi 06/29/[address] you li ve. Do you have problems with any of the following? None of the above 06/29/2024 Food Insecurity Answer Date Recorded Within the past 12 months, y ou worried that your food would run out before you got money to buy more: Never True 06/29/2024 Within the past 12 months,th e food you bought just didn't last and you didn't have enough money to get more: Never True 10/2024 Transportation Answer Date Recorded In the past 12 months, has l ack of transportation kept you from medical appts, meetings, work or from getting things needed for daily living? Yes, it has kept me from medical appointments or getting medications. 06/29/2024 Utilities Answer Date Recorded In the past 12 months, has t he electric, gas, oil or water company threatened to shut off services in your home? No 06/29/2024 Depression Answer Date Recorded Patient Health Questionnaire-2 Score 3 08/04/2024 Internet Access Answer Date Recorded Internet Access Q1 Yes 07/20/2024 Internet Access Q2 Not on file 07/20/2024 Comments Unknown Sex and Gender Information Value Date Recorded Sex Assigned at Female 09/17/2022 10:37 AM EDT Legal Sex Female 10:37 AM EDT Gender Identity Female 09/17/2022 10:37 AM EDT Sexual Orientation Choose not to disclose 2021 10:37 AM EDT Last Filed Vital Signs Vital Sign Reading Time Taken Comments Blood Pressure 144/102 03/01/2025 3:20 PM EDT Pulse 90 03/01/2025 3:20 PM EDT Temperature 36.7 ??C (98 ??F) 03/01/2025 3:20 PM EDT Respiratory Rate 16 03/01/2025 3:20 PM EDT Oxygen Saturation 97% 03/01/2025 3:20 PM EDT Inhaled Oxygen Concentration - - Weight 83 kg (183 lb) 03/01/2025 3:20 PM EDT Height 157.5 cm (5' 2 ) 03/01/2025 3:20 PM EDT Body Mass Index 33.47 03/01/2025 3:20 PM EDT Plan of Treatment Health Maintenance Due Date Last Done Comments HIV Screening 1981 DTaP/Tdap/Td Vaccines (1 - Tdap) 01/18/2000 Hepatitis B Vaccines (1 of 3 - 19+ 3-dose series) 01/18/2000 Mammogram 2021 Pap Smear 03/07/2024 03/07/2021 COVID-19 Vaccine ( season) 2024 07/11/2022, 07/11/2022, 03/01/2021, Additional history exists Influenza Vaccine (#1) 2024 Alcohol/Substance Use Screening 06/29/2025 06/29/2024 SDOH Screening 06/29/2025 06/29/2024 Lipid Panel 07/15/2025 07/15/2020 Depression Screening 08/04/2025 08/04/2024, 08/04/20 Tobacco Screening 03/01/2026 03/01/2025 Family Planning (PISQ) 03/02/2026 03/02/2025 Cervical Cancer Screening 03/07/2026 HPV/Cotest 03/07/2026 03/07/2021 Zoster Vaccines (1 of 2) 2031 RSV Patients and Patients Aged 60 years or older (1 - 1-dose 75+ series) 01/18/2056 Hepatitis C Screening Completed 07/02/2023, 020 HIB Vaccines Aged Out No longer eligi ble based on patient's age to complete this topic HPV Vaccines Aged Out No longer eligi ble based on patient's age to complete this topic Hepatitis A Vaccines Aged Out No long er eligible based on patient's age to complete this topic IPV Vaccines Aged Out No longer eligi ble based on patient's age to complete this topic Meningococcal Vaccine Aged Out No ankur dontae eligible based on patient's age to complete this topic Pneumococcal Vaccine: Pediatrics (0 to 5 Years) and At-Risk Patients (6 to 49) Years) Aged Out No longer eligible based on patient's age to complete this topic RSV under 20 months Aged Out No longe r eligible based on patient's age to complete this topic Rotavirus Vaccines Aged Out No longer eligible based on patient's age to complete this topic Procedures Procedure Name Priority Date/Time Associated Diagnosis Comments HEPATITIS PANEL, GENERAL Routine 07/02/2023 11:19 AM EDT HPV MRNA E6/E7 Routine 03/07/2021 12:00 AM EDT THINPREP IMAGING SYSTEM PAP Routine 03/07/2021 12:00 AM EDT LIPID PANEL, STANDARD Routine 07/15/2020 3:51 PM EDT from Last 3 Months or Most Recently Relevant to Health Maintenance Results * Hepatitis Panel, General (07/02/2023 11:19 AM EDT) Hepatitis A IgM Nonreactive Nonreactive [facility] Comment:IgM antibodies to HOWARD V not detected; does not exclude earlyacute or recovered HAV infection. ~Hepatitis B Surface Antibody NONREACTIVE Nonreactive [facility] Comment:Nonreactive: < 8.00 mIU/mL Hepatitis B Core Antibody Nonreactive Nonreactive [facility] Hepatitis C Antibody Nonreactive Nonreactive [facility] Comment:Antibodies to HCV no t detected; does not exclude early acuteHCV infection. Hepatitis B Surface Ag Negative Negative [facility] 07/02/2023 11:1 9 AM EDT 07/02/2023 11:19 AM EDT [facility] External Provider LAB BLO OD ORDERABLES Final Result Performing Organization Address [facility] Co de Phone Number [facility] [address] [place] [address] [phone] * THINPREP TIS PAP (03/07/2021 12:00 AM EDT) Clinical Information: None given [facility] COMMENT SEE COMMENT [facility] Comment: EXPLANATORY NOTE: ? The Pap is a screening test for cervical cancer. It is ?? not a diagnostic test and is subject to false negative ?? and false positive results. It is most reliable when a ?? satisfactory sample, regularly obtained, is submitted ?? with relevant clinical findings and history, and when ?? the Pap result is evaluated along with historic and ?? current clinical information. ?? COMMENT: This Pap test has been evaluated with computer assisted technology. [facility] Papier Mache' Molder : SEE COMMENT [facility] Comment: SXA, CT(ASCP) CT screening location: [address] ??[address] Interpretation/R esult: Negative for intraepithelial lesion or malignancy. [facility] LMP: NONE GIVEN [facility] Prev. BX: NONE GIVEN [facility] Prev. PAP: NONE GIVEN [facility] SOURCE: Vaginal cuff [facility] Statement Of Adequacy: SEE COMMENT [facility] Comment: Satisfactory for evaluation. Endocervical/transformation zone component present. Age and/or menstrual status not provided 03/07/2021 us Historical Provider MD LAB PATHOLOGY ORDERABLES Final Result [facility] [address] * HPV mRNA E6/E7 (03/07/2021 12:00 AM EDT) HPV nRNA E6/E7 Not Detected Not Detected [facility] Comment: Methodology: Semiconductor Development Technician-Mediated Amplification This assay detects E6/E7 viral messenger RNA (mRNA) from 14 high-risk HPV types (16,18,31,33,35,39,45,51,52,56,58,59,66,68). ? The analytical performance characteristics of this assay have been determined by [employer]. The modifications have not been cleared or approved by the FDA. This assay has been validated pursuant to the CLIA regulations and is used for clinical purposes. ?? For additional information, please refer to http://education.FantasyHub/faq/NFE252w2 (This link if provided for information/ educational purposes only.) 03/07/2021 us Historical Provider LAB BLOOD ORDERABLES Reina henderson Result [facility] [address] * (ABNORMAL) LIPID PANEL, STANDARD (07/15/2020 3:51 PM EDT) Triglycerides 447(H) <150 mg/dL [facility] Comment: ?? If a non-fasting specimen was collected, consider repeat triglyceride testing on a fasting specimen if clinically indicated. ?? Brice et al. J. of Clin. Lipidol. 2015;9:129-169. ?? HDL Cholesterol 40(L) > OR = 50 mg/dL [facility] Cholesterol, Total 199 <200 mg/dL [facility] Non-HDL Cholesterol 159(H) <130 mg/dL (calc) [facility] Comment: For patients with diabetes plus 1 major ASCVD risk ?? factor, treating to a non-HDL-C goal of <100 mg/dL ?? (LDL-C of <70 mg/dL) is considered a therapeutic ?? option. HDL Cholesterol 40(L) > OR = 50 mg/dL [facility] Triglycerides 447(H) <150 mg/dL [facility] Comment: ?? If a non-fasting specimen was collected, consider repeat triglyceride testing on a fasting specimen if clinically indicated. ?? Brice et al. J. of Clin. Lipidol. 2015;9:129-169. ?? LDL Cholesterol SEE COMMENT mg/dL (calc) [facility] Comment: ?? LDL cholesterol not calculated. Triglyceride levels greater than 400 mg/dL invalidate calculated LDL results. ?? Reference range: <100 ?? Desirable range <100 mg/dL for primary prevention; ?? <70 mg/dL for patients with CHD or diabetic patients ?? with > or = 2 CHD risk factors. ?? LDL-C is now calculated using the Guerrero-Ham ?? calculation, which is a validated novel method providing ?? better accuracy than the Friedewald equation in the ?? estimation of LDL-C. ?? Guerrero SS et al. LAYLA. 2013;310(19): 4739-7078 ?? (http://Purch.OkCupid/faq/BIY532) Chol/HDLC Ratio 5.0(H) <5.0 (calc) [facility] Non-HDL Cholesterol 159(H) <130 mg/dL (calc) [facility] Comment: For patients with diabetes plus 1 major ASCVD risk ?? factor, treating to a non-HDL-C goal of <100 mg/dL ?? (LDL-C of <70 mg/dL) is considered a therapeutic ?? option. LDL Cholesterol SEE COMMENT mg/dL (calc) [facility] Comment: ?? LDL cholesterol not calculated. Triglyceride levels greater than 400 mg/dL invalidate calculated LDL results. ?? Reference range: <100 ?? Desirable range <100 mg/dL for primary prevention; ?? <70 mg/dL for patients with CHD or diabetic patients ?? with > or = 2 CHD risk factors. ?? LDL-C is now calculated using the Guerrero-Ham ?? calculation, which is a validated novel method providing ?? better accuracy than the Friedewald equation in the ?? estimation of LDL-C. ?? Guerrero LATHAM et al. LAYLA. 2013;310(19): 1808-5076 ?? (http://education.Skipola.Eponym/faq/GKU417) Cholesterol, Total 199 <200 mg/dL [facility] Chol/HDLC Ratio 5.0(H) <5.0 (calc) [facility] 07/15/2020 3:51 PM EDT us Historical Provider LAB BLOOD ORDERABLES Reina henderson Result [facility] [address] from Last 3 Months or Most Recently Relevant to Health Maintenance [place] [address] [address] , [address] [place] [address] Care Teams Supervisor Steffen House Relationship Specialty Start Date End Date Anne Clemente MD [address] [place] [phone] PCP - General Family Medicine 07/10/21
--- OUTSIDE RECORDS SUMMARY | 2025-03-09 17:07 | XMS_ITS | Clinical Summary ---
Author Organization [facility] Address [address] [place] [address] Care Team Providers Care Plaster Patternmaker Name Role Phone Unavailable Primary Care Provider Unavailabl e Social History Tobacco Use Types Packs/Day Years Used Date Smoking Tobacco: Never Assessed Comments Unknown Sex and Gender Information Value Date Recorded Sex Assigned at Not on file Legal Sex Female 8:57 PM EST Gender Identity Not on file Sexual Orientation Not on file Plan of Treatment Health Maintenance Due Date Last Done Comments Breast Cancer Screening 1981 DTaP,Tdap,and Td Vaccines (1 - Tdap) 01/18/2000 Hepatitis B Vaccines (1 of 3 - 19+ 3-dose series) 01/18/2000 Cervical Cancer Screening: P ap Smear 2002 Depression Screening 12/13/2023 HIV Screening 12/13/2023 Hepatitis C Screening 12/13/2023 Social Influencers of Health Screening 12/13/2023 COVID-19 Vaccine ( - 2023-2 5 season) 2024 Influenza Vaccine (Season Ended) 2025 HIB Vaccines Aged Out No longer eligi [...] on patient's age to complete this topic MMR Vaccines Aged Out No longer eligi ble based on patient's age to complete this topic Meningococcal ACWY Vaccine Aged Out N o longer eligible based on patient's age to complete this topic Meningococcal B Vaccine Aged Out No l onger eligible based on patient's age to complete this topic Pneumococcal Vaccine: Pediat rics (0 to 5 Years) and At-Risk Patients (6 to 64 Years) Aged Out No longer eligible b ased on patient's age to complete this topic RSV Immunization Patients Un margaret 20 months Aged Out No longer eligible b ased on patient's age to complete this topic Varicella Vaccines Aged Out No longer eligible based on patient's age to complete this topic
--- OUTSIDE RECORDS SUMMARY | 2025-03-09 17:07 | XMS_ITS | Encounter Summary ---
Author Organization [employer] Address [address] [place] [address] [address] [place] [address] Care Team Providers Care Wireless Construction Manager Name Role Phone Anne Clemente MD Primary Care Provider [phone] Reason for Referral * Consultation (Routine) - Closed Specialty Diagnoses / Procedures Referred By Contac t Referred To Contact Physical Therapy Diagnoses Vertigo Anne Clemente MD [address] [place] [phone] Phone: tel: fax: [facility] [address] [place] [address] Phone: tel: fax: Referral ID Status Reason Start Date Expiration Date V isits Requested Visits Authorized [id number] Closed Specialty Services Required 12/22/2024 12/22/2025 1 1 Encounter Details Date Type Department Care Team (Late st Contact Info) Description 12/22/2024 Orders Only [facility] [address] [place] [address] [phone] Anne Clemente MD [address] [place], [place] [phone] Vertigo (Primary Dx) Social History Tobacco Use Types Packs/Day Years [...] your housing situation today? I have cecilia zapata 06/29/[address] you li [...] AM EDT documented as of this encounter Plan of Treatment Scheduled Referrals Name Type Priority Associated Diagnoses Orde r Schedule Referral to Physical Therapy Outpatient Referral Routine Vertigo Expected: 12/22/2024 (Approximate), Expires: 12/22/2025 documented as of this encounter Visit Diagnoses Diagnosis Vertigo- Primary Dizziness and giddiness documented in this encounter Additional Health Concerns Assessment Noted Time PHQ-9 Depression Total Score: 11 024 2:40 PM EDT documented as of this encounter Care Teams Wireless Construction Manager Relationship Specialty Start Date End Date Anne Clemente MD [address] [place] [address] PCP - General Family Medicine 07/10/21 documented as of this encounter
== END 2025-03-09 14:16 | disposition home or self-care (01) ==
LOC: HO.MAMMO 14:15
PROVIDERS: PCP General Practice; Visit Provider General Practice
DX: Z12.31 Encounter for screening mammogram for malignant neoplasm of breast (principal)
CPT/HCPCS: 77063; 77067

== ENCOUNTER → 2025-03-09 14:45 | Outpatient (BNV) | payer OTHER, SELFPAY | PROVIDERS: PCP General Practice; Visit Provider Internal Medicine | DX: Z12.31 Encounter for screening mammogram for malignant neoplasm of breast (principal) | CPT/HCPCS: 77063; 77067 ==